=== PATIENT | male | born 1955 | race Native Hawaiian/Other Pacific Islander ===

== ENCOUNTER 2016-02-26 10:11 | Outpatient (CLI) | payer OTHER, BC ==
[~2016-02-26 10:11] MED LIST: AMBIEN5 MG PO; ASPIR-8181 MG PO; CALTRATE 601 PO; CELEXA20 MG PO; CENTRUM SILVER PO; CLARITIN10 M1 PO; CLINDAMYCIN300 MG PO; COZAAR100 MG PO; DILTIAZEM HCL360 M2 PO; DILTIAZEM240 M1 PO; DULO60CA2 PO; EXFORGE1 TA3 PO; FLINTSTONES GUM1 CHW PO; FLUT0.05 NAS; HYDR12.54 PO; IBUP800T30 PO; K-TABS10 MEQ PO; LABETALOL200 MG PO; MAG OXIDE400 M2 PO; MOBIC15 MG PO; OMEP20CA PO; OXYC20TA3 PO; OXYC5TAB53 PO; OXYCONTIN15 MG PO; RISP2TAB2 PO; SIMV20TA2 PO; TAMSULOSIN0.4 MG PO
[2016-02-26 10:37] LABS: PLATELET COUNT 248 K/uL (142-355)
[2016-02-26 10:57] LABS: SODIUM 136 mmol/L (136-145)
== END 2016-02-26 11:11 | disposition home or self-care (01) ==
LOC: LABW 10:11
PROVIDERS: Internal Medicine
DX: I10 Essential (primary) hypertension (principal); Z12.5 Encounter for screening for malignant neoplasm of prostate
CPT/HCPCS: 36415; 80053; 80061; 81000; 84154; 85027

== ENCOUNTER 2017-03-20 12:44 | Outpatient (CLI) | payer OTHER, BC ==
[2017-03-20 13:11] LABS: PLATELET COUNT 349 K/uL (142-355)
== END 2017-03-20 21:12 | disposition home or self-care (01) ==
LOC: LAB 12:44
PROVIDERS: Internal Medicine
DX: I10 Essential (primary) hypertension (principal)
CPT/HCPCS: 80053; 80061; 81000; 84439; 84443; 85027

== ENCOUNTER 2017-06-20 14:53 | Outpatient (CLI) | payer OTHER, BC | END 2017-06-20 19:38 | disposition home or self-care (01) | LOC: LABW 14:53 | DX: Z79.899 Other long term (current) drug therapy (principal); Z51.81 Encounter for therapeutic drug level monitoring | CPT/HCPCS: 36415; 86480 ==

== ENCOUNTER 2017-10-17 10:52 | Outpatient (CLI) | payer OTHER, BC ==
[2017-10-17 11:27] LABS: POTASSIUM 3.9 mmol/L (3.6-5.2)
[2017-10-17 12:32] LABS: PLATELET COUNT 231 K/uL (142-355)
== END 2017-10-17 23:51 | disposition home or self-care (01) ==
LOC: LAB 10:52
PROVIDERS: Internal Medicine
DX: I10 Essential (primary) hypertension (principal); Z12.5 Encounter for screening for malignant neoplasm of prostate; N40.0 Benign prostatic hyperplasia without lower urinary tract symptoms
CPT/HCPCS: 80053; 80061; 81000; 83735; 84153; 84439; 84443; 85027

== ENCOUNTER 2018-04-27 10:13 | Outpatient (CLI) | payer OTHER, BC ==
[2018-04-27 10:35] LABS: PLATELET COUNT 247 K/uL (142-355)
[2018-04-27 10:55] LABS: POTASSIUM 3.7 mmol/L (3.6-5.2)
== END 2018-04-27 19:11 | disposition home or self-care (01) ==
LOC: LABW 10:13
PROVIDERS: Internal Medicine
DX: I10 Essential (primary) hypertension (principal)
CPT/HCPCS: 36415; 80053; 80061; 81000; 84439; 84443; 85027